=== PATIENT | male | born 1965 | race American Indian/Alaskan Native ===

== ENCOUNTER 2017-04-23 13:27 | Emergency (ER) | payer SELFPAY ==
[2017-04-23 13:44] VITALS: TEMP 97.2
--- NOTE | 2017-04-23 14:12 | C.PDOC ---
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 EMS arrived to scene and blood pressure was high. At ED patient is uncooperative, does not answer any questions. Not speaking to ED staff, eyes closed, sitting up, not responding to questions . When ED staff walks away patient is heard laughing and joking with police officers, does not offer any complaints . Patient overheard cursing and stating he is not afraid to go to nursing home. Speech is normal. Time Seen by Provider: 04/23/17 13:49 Chief Complaint (Nursing): Medical Clearance History Per: EMS History/Exam Limitations: other (Patient is uncooperative and refusing to answer any questions) Past Medical History Vital Signs: Last Vital Signs Temp 97.2 F L 04/23/17 13:43 Pulse 82 04/23/17 15:02 Resp 16 04/23/17 15:02 BP 160/103 H 04/23/17 15:02 Pulse Ox 97 04/23/17 15:02 - Medical History PMH: HTN Family History: States: Unknown Family Hx - Social History Hx Alcohol Use: No Hx Substance Use: No Review Of Systems Review Of Systems: ROS cannot be obtained secondary to pt's inabilty to answer questions. (Patient in uncooperative and not answering any questions) Physical Exam - Physical Exam Appears: Well, Non-toxic, Other (Uncooperative, Not speaking) Skin: Normal Color, Warm, Dry, No Rash Head: Atraumatic, Normacephalic Eye(s): bilateral: Normal Inspection Oral Mucosa: Moist Neck: Supple Cardiovascular: Rhythm Regular Respiratory: Normal Breath Sounds, No Rales, No Rhonchi, No Wheezing Gastrointestinal/Abdominal: Soft, No Tenderness, No Guarding, No Rebound Extremity: Normal ROM, Capillary Refill (<2 seconds) Neurological/Psych: Oriented x3 ED Course And Treatment - Laboratory Results Result Diagrams: 04/23/17 14:34 O2 Sat by Pulse Oximetry: 98 (RA) Pulse Ox Interpretation: Normal Progress Note: CXR, ECG, CT SCAN orderd, Blood work, UA ordered Medical Decision Making Medical Decision Making: Due to patient being awake and conversational with PD, will cancel head CT. Patient refusing medication for elevated BP. Does not c/o head ache, nausea, no chest pain. Disposition Counseled Patient/Family Regarding: Need For Followup - Disposition Disposition: RELEASED IN POLICE CUSTODY Disposition Time: 15:08 Condition: STABLE Additional Instructions: [facility] You need to be treated for hypertension. Realize you refused medication while in the Emergency Department. Instructions: Hypertension (ED) Forms: [facility] (Georgian), General Discharge Instructions - POA Present On Arrival: None - Clinical Impression Clinical Impression: Hypertension - Scribe Statement The provider has reviewed the documentation as recorded by the Nicolibremington Landry All medical record entries made by the Nicolibremington were at my direction and personally dictated by me. I have reviewed the chart and agree that the record accurately reflects my personal performance of the history, physical exam, medical decision making, and the department course for this patient. I have also personally directed, reviewed, and agree with the discharge instructions and disposition.
[2017-04-23] MEDS ORDERED: Metoprolol Succinate 12.5 mg XL PO ONE (14:13)
[2017-04-23 14:34] LABS: SQUAMOUS EPITHIAL < 1 /hpf (0-5); URINE BILIRUBIN NEGATIVE (NEGATIVE); URINE BLOOD NEGATIVE (NEGATIVE); URINE CLARITY Clear (Clear); URINE COLOR Yellow (YELLOW); URINE GLUCOSE (UA) NORMAL (Normal); URINE HYALINE CAST 0-2 /lpf (0-2); URINE LEUKOCYTE ESTERASE NEG Leu/uL (Negative); URINE NITRATE NEGATIVE (NEGATIVE); URINE PROTEIN 1+ mg/dL (NEGATIVE); URINE UROBILINOGEN NORMAL mg/dL (0.2-1.0)
[2017-04-23 14:54] LABS: BARBITURATES, UR NEGATIVE (NEGATIVE); BENZODIAZEPINES, UR NEGATIVE (NEGATIVE); OPIATES, UR NEGATIVE (NEGATIVE); PHENCYCLIDINE, UR NEGATIVE (NEGATIVE)
--- NOTE | 2017-04-23 14:56 | RAD ---
PROCEDURE: CHEST RADIOGRAPH, 1 VIEW HISTORY: AMS COMPARISON: None available. FINDINGS: LUNGS: Mild bibasilar atelectasis. There appears to be some pleural thickening in the right lateral lung base with blunting and elevation of the right CP angle region. PLEURA: No pneumothorax or pleural fluid seen. CARDIOVASCULAR: Normal. OSSEOUS STRUCTURES: No significant abnormalities. VISUALIZED UPPER ABDOMEN: Normal. OTHER FINDINGS: None. IMPRESSION: Mild bibasilar atelectasis. There also appears be chronic pleural thickening and elevation of the right CP angle region.
[2017-04-23 15:02] VITALS: BP 160/103; PULSE 82; RESP 16
[2017-04-23 15:04] LABS: ALB/GLOB RATIO 1.1 (1.0-2.1); ALBUMIN 4.1 g/dL (3.5-5.0); CALCIUM 8.9 mg/dl (8.6-10.4); GFR AFRICAN-AMERICAN > 60; GFR NON-AFRICAN AMERICAN > 60
[2017-04-23 15:09] VITALS: O2SAT 98
[2017-04-23 15:16] LABS: ALT/SGPT 18 U/L (21-72); AST/SGOT 32 U/L (17-59); BLOOD UREA NITROGEN 12 mg/dL (9-20)
== END 2017-04-23 15:13 ==
LOC: C.ER 13:27
DX: I10 Essential (primary) hypertension (principal)
CPT/HCPCS: 71045; 80053; 81001; 99283; G0480